=== PATIENT | female | born 1955 | race Caucasian/White ===

== ENCOUNTER 2018-01-23 14:07 | Emergency (ER) | payer MEDICARE ==
[~2018-01-23 14:07] MED LIST: ALPR-410 PO; CHOL500050 PO; CYAN1000I IM; DOXY100C2 PO; DULO60CA63 PO; FOLI-44 PO; GABA-529 PO; HYDR200T4 PO; KRIL1CAP22 PO; LEFL10TA15 PO; LEVO50TA11 PO; METH25VI11 SQ; MORPHINE SULFATE ER; OXYC-517 PO; SERT100T12 PO; ZOLP10TA6 PO
== END 2018-01-23 15:23 | disposition home or self-care (01) ==
LOC: EDH 14:07
DX: S63.591A Other specified sprain of right wrist, initial encounter (principal); E07.9 Disorder of thyroid, unspecified; M06.9 Rheumatoid arthritis, unspecified; M79.7 Fibromyalgia; D64.9 Anemia, unspecified; F32.9 Major depressive disorder, single episode, unspecified; X50.9XXA Other and unspecified overexertion or strenuous movements or postures, initial encounter; Y93.89 Activity, other specified; Y92.098 Other place in other non-institutional residence as the place of occurrence of the external cause; Y99.8 Other external cause status
CPT/HCPCS: 29125; 73090; 73110

== ENCOUNTER → 2020-12-30 | Outpatient (CLI) | payer MEDICARE ==
[~2020-12-30] MED LIST changes: +CENTRUM CHEWAB1 EACH PO; -DULO60CA63 PO; +DULO60CA64 PO; -FOLI-44 PO; -OXYC-517 PO; +OXYC1TAB12 PO; +SERT-440 PO; -SERT100T12 PO
== END | disposition home or self-care (01) ==
LOC: RAH 11:12
PROVIDERS: ATTEND Internal Medicine
DX: R13.10 Dysphagia, unspecified (principal); R63.3 Feeding difficulties
CPT/HCPCS: 74230; 92611

== ENCOUNTER 2021-03-28 18:06 | Inpatient (IN) | payer MEDICARE ==
[~2021-03-28] VITALS: Ht 157.5 cm; Wt 82.8 kg
[~2021-03-28 18:06] MED LIST changes: -MORPHINE SULFATE ER; +MORPHINE SULFATE ER PO
[2021-03-28] MEDS ORDERED: MORPHINE 4 MG SYG (4MG/1ML) IM ONE (20:00)
[2021-03-28] MEDS ORDERED: KETOROLAC 30MG VIAL (30MG/ML) IM SCH (20:00)
[2021-03-28 21:42] VITALS: BP 121/64
[2021-03-28 23:00] VITALS: BP 126/60
[2021-03-28] MEDS ORDERED: ONDANSETRON HCL 4 MG/2 ML VIAL IVP PRN (23:30)
[2021-03-28] MEDS ORDERED: ENOXAPARIN SODIUM 80 MG/0.8 ML SQ SCH (23:30)
[2021-03-29] VITALS (9 sets, daily range): BP systolic 14–145; BP diastolic 52–98
[2021-03-29] MEDS: CEFTRIAXONE SODIUM 1 GM IVP SCH ×2 (01:00→09:00)
[2021-03-29 09:15] LABS: HEMATOCRIT 33.6 % (36-48); MEAN CORPUSCULAR HEMOGLOBIN 29.1 pg (27.0-33.0); MEAN CORPUSCULAR HGB CONC 30.7 g/dL (32.0-36.0); MEAN CORPUSCULAR VOLUME 94.9 fL (79-99); PLATELET COUNT (AUTO) 460 K/uL (130-400); RED BLOOD CELL COUNT(AUTO) 3.54 MIL/uL (4.00-5.50); RED CELL DISTRIBUTION WIDTH 13.9 % (11.0-15.5); WHITE BLOOD COUNT (AUTO) 8.5 K/uL (4.8-10.8)
[2021-03-29 09:26] LABS: CREATININE 0.6 mg/dL (0.5-1.5); POTASSIUM 4.2 mmol/L (3.5-5.1)
[2021-03-29 09:31] LABS: ALBUMIN 3.2 g/dL (3.5-5.0); BILIRUBIN,TOTAL 0.4 mg/dL (0.2-1.0); TOTAL PROTEIN, SERUM 6.8 g/dL (6.0-8.3)
[2021-03-29] MEDS ORDERED: TERB250T51 PO (10:05)
[2021-03-29] MEDS ORDERED: BUSP15TA3 PO (10:05)
[2021-03-29] MEDS ORDERED: TRAZ-185 PO (10:05)
[2021-03-29] MEDS ORDERED: TOFA11TA PO (10:05)
[2021-03-29] MEDS ORDERED: BREX0.25 PO (10:05)
[2021-03-29] MEDS ORDERED: BENZ0.5T43 PO (10:05)
[2021-03-29] MEDS ORDERED: ENOXAPARIN SODIUM 80 MG/0.8 ML SQ SCH (13:00)
[2021-03-29] MEDS: HYDROMORPHONE 0.5 MG SYG (0.5MG/0.5ML) IVP PRN ×2 (15:00→18:19)
[2021-03-30] VITALS (7 sets, daily range): BP systolic 94–145; BP diastolic 54–83
[2021-03-30] MEDS: CEFTRIAXONE SODIUM 1 GM IVP SCH (08:43)
[2021-03-30] MEDS: ENOXAPARIN SODIUM 80 MG/0.8 ML SQ SCH (08:48)
[2021-03-30] MEDS: HYDROMORPHONE 0.5 MG SYG (0.5MG/0.5ML) IVP PRN ×3 (10:44→20:12)
[2021-03-31 04:12] VITALS: BP 101/64
[2021-03-31 04:28] LABS: BASOPHILS % (AUTO) 0.5 % (0.0-5.0); EOSINOPHILS % (AUTO) 2.2 % (0.0-8.0); HEMATOCRIT 33.5 % (36-48); LYMPHOCYTES % (AUTO) 42.2 % (21.0-51.0); MEAN CORPUSCULAR HEMOGLOBIN 29.2 pg (27.0-33.0); MEAN CORPUSCULAR HGB CONC 30.7 g/dL (32.0-36.0); MEAN CORPUSCULAR VOLUME 94.9 fL (79-99); NEUTROPHILS % (AUTO) 42.6 % (40.0-77.0); PLATELET COUNT (AUTO) 441 K/uL (130-400); RED BLOOD CELL COUNT(AUTO) 3.53 MIL/uL (4.00-5.50); WHITE BLOOD COUNT (AUTO) 6.3 K/uL (4.8-10.8)
[2021-03-31 04:44] LABS: BILIRUBIN,TOTAL 0.3 mg/dL (0.2-1.0); CREATININE 0.7 mg/dL (0.5-1.5); POTASSIUM 3.9 mmol/L (3.5-5.1); TOTAL PROTEIN, SERUM 6.5 g/dL (6.0-8.3)
[2021-03-31] MEDS: HYDROMORPHONE 0.5 MG SYG (0.5MG/0.5ML) IVP PRN (05:09)
[2021-03-31 07:30] VITALS: BP 137/74
[2021-03-31] MEDS ORDERED: COSYNTROPIN 0.25 MG VIAL IVP SCH (07:30)
[2021-03-31] MEDS ORDERED: BUSPIRONE HCL 5 MG TABLET PO PRN (08:15)
[2021-03-31] MEDS: CEFTRIAXONE SODIUM 1 GM IVP SCH (08:38)
[2021-03-31] MEDS: ENOXAPARIN SODIUM 80 MG/0.8 ML SQ SCH (08:39)
[2021-03-31] MEDS ORDERED: **HM** XELJANZ XR 11MG PO SCH (09:00)
[2021-03-31] MEDS ORDERED: DULOXETINE HCL 30 MG CAP PO SCH (09:00)
[2021-03-31] MEDS ORDERED: BENZTROPINE MESYLATE 0.5 MG TAB PO SCH (09:00)
[2021-03-31] MEDS ORDERED: **HM** TERBINAFINE 250MG PO SCH (09:00)
[2021-03-31] MEDS ORDERED: BREXPIPRAZOLE 0.25 MG PO SCH (09:00)
[2021-03-31] MEDS ORDERED: FISH OIL 1000 MG/CAP PO SCH (09:00)
[2021-03-31 12:00] VITALS: BP 130/78
[2021-03-31 16:29] VITALS: BP 122/62
[2021-03-31] MEDS ORDERED: TRAZODONE HCL 50 MG TAB PO SCH (21:00)
[2021-04-01] MEDS ORDERED: TAMS-1 PO (18:31)
== END 2021-03-31 17:59 | DRG 563 ==
LOC: EDH 18:06 → EDHIP 22:47 → OBSVTOIN 22:47 → 4BH 03-29 07:43
PROVIDERS: ADMIT Internal Medicine; ATTEND Internal Medicine
PROC: 2W3LXYZ Immobilization of Right Lower Extremity using Other Device (ICD-10-PCS; principal; 2021-03-28)
DX: S82.831A Other fracture of upper and lower end of right fibula, initial encounter for closed fracture (principal); I82.411 Acute embolism and thrombosis of right femoral vein; I10 Essential (primary) hypertension; M06.9 Rheumatoid arthritis, unspecified; F32.9 Major depressive disorder, single episode, unspecified; F41.9 Anxiety disorder, unspecified; M79.7 Fibromyalgia; Z90.49 Acquired absence of other specified parts of digestive tract; G62.9 Polyneuropathy, unspecified; W18.39XA Other fall on same level, initial encounter; Y93.89 Activity, other specified; Y92.89 Other specified places as the place of occurrence of the external cause; Y99.8 Other external cause status
CPT/HCPCS: 36415; 73560; 73590; 73610; 73630; 80053; 82533; 85025; 85027; 93005; 93306; 93356; 93971; 97039; G0378; J0696; J0834; J1170; J1650; J1885; J2270

== ENCOUNTER 2021-04-01 16:02 | Emergency (ER) | payer MEDICARE ==
[~2021-04-01] VITALS: Ht 157.5 cm; Wt 83.9 kg
[~2021-04-01 16:02] MED LIST changes: -ALPR-410 PO; +BENZ0.5T43 PO; +BREX0.25 PO; +BUSP15TA3 PO; -CENTRUM CHEWAB1 EACH PO; -CHOL500050 PO; -CYAN1000I IM; -GABA-529 PO; -HYDR200T4 PO; -LEFL10TA15 PO; -LEVO50TA11 PO; -METH25VI11 SQ; -SERT-440 PO; +TERB250T51 PO; +TOFA11TA PO; +TRAZ-185 PO; -ZOLP10TA6 PO
[2021-04-01 16:04] VITALS: BP 121/93
[2021-04-01 18:25] VITALS: BP 128/65
[2021-04-01] MEDS ORDERED: TAMS-1 PO (18:31)
== END 2021-04-01 19:25 | disposition home or self-care (01) ==
LOC: EDH 16:02
DX: S42.422A Displaced comminuted supracondylar fracture without intercondylar fracture of left humerus, initial encounter for closed fracture (principal); W18.39XA Other fall on same level, initial encounter; Z79.899 Other long term (current) drug therapy; Y93.89 Activity, other specified; Y92.89 Other specified places as the place of occurrence of the external cause; Y99.8 Other external cause status
CPT/HCPCS: 29105; 73070